=== PATIENT | male | born 1985 | race Caucasian/White ===

== ENCOUNTER 2018-08-07 15:28 | Emergency (ER) | payer MEDICAID, SELFPAY ==
[2018-08-07 15:32] VITALS: BP 178/95; PULSE 79; RESP 18; TEMP 36; O2SAT 98
--- NOTE | 2018-08-07 15:37 | DI.COMBO_ITS ---
SYMPTOM/DIAGNOSIS: LT GROIN PAIN, LT TESTICLE PAIN ABDOMEN AND PELVIC CT: CT examination of the abdomen and pelvis was performed without contrast administration. Images obtained through the lung bases are unremarkable. 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 The visualized portions of the liver and spleen are unremarkable as is the pancreas. No biliary dilatation is seen. Gallbladder is CT normal. Abdominal aorta is of normal diameter. No significant abdominal wall hernia is seen. No abdominal or pelvic adenopathy is seen. Appendix is normal. No evidence of diverticulitis or bowel obstruction. Adrenals appear normal bilaterally. There are tiny bilateral non obstructing renal calculi. There is a rim calcified, 36 mm. in diameter, low attenuation right renal lesion consistent with a parapelvic cyst. On the left, there is a minimally obstructing versus non obstructing proximal ureteral calculus measuring 1-2 mm. in diameter. CONCLUSION: 1. Bilateral non obstructing renal calculi. 2. Presumed right parapelvic cyst. 3. Minimally obstructing or non obstructing proximal left ureteral stone, 1-2 mm. in diameter. SCROTAL ULTRASOUND: The testicles were interrogated with a high resolution 7 megahertz small parts transducer which is doppler and color flow capable. There is no mass or abnormal fluid collection. The testicles are of normal size and acoustic consistency.The epididymis and region of the mediastinum testis is normal bilaterally. SUMMARY: Normal testicular ultrasound.
[2018-08-07] MEDS: MORPHine 10 MG/ML VIAL 4 MG IVP (15:43)
[2018-08-07] MEDS: Ondansetron 4 MG/2 ML VIAL IVP (15:43)
--- NOTE | 2018-08-07 15:43 | ED.GENADUL_ITS ---
Discharge Plan Disposition Patient Disposition: HOME Condition: Stable Discharge Details Chief Complaint: Abd Prob Clinical Impression: Kidney stone Primary Care Provider: Hari Cassidy ED Provider: Jalen Gooden Home Meds and New Rx's Prescriptions: New ondansetron 4 mg tablet,disintegrating 4 mg PO TID PRN (Reason: nausea and vomiting) 5 Days Qty: 30 RF: 0 oxycodone 5 mg tablet 5 mg PO Q6H PRN (Reason: pain) Qty: 12 RF: 0 Continued ibuprofen 800 MG tablet 800 mg PO TID PRN Qty: 30 RF: 0 Discharge Instructions Instructions: Kidney Stones (ED) Additional Instructions: you can take 1000mg tylenol every 6 hours for pain and also 800mg ibuprofen every 8 hours for pain. If this doesn't control your pain take 1 oxycodone, do not drink alcohol or drive if you take oxycodone you should be contacted with an appointment with urology If you have severe uncontrolled pain, persistent vomit or fevers return to the emergency department Medical Decision Making 33 yo male comes in with acute onset left testicle pain starting about an hour or so ago while sitting in his truck. Denies any recent trauma, no fevers and no hx of std, denies dysuria or d/c. Never has had pain like this. He has a diffusely tender left testicle with no swelling with intact cremasteric reflex. Given potential for torsion will refer for u/s. Has no redness, erythema or crepitus so doubt cellulitis or veto's gangrene. u/s negative for any pathology per tech, good flow. He still has pain but now localizes the pain to the left groin, will evaluate for possible kidney stone causing his pain pt's pain significantly improved with toradol, is more comfortable, no longer has tenderness in testicle and only has left groin area pain. His labs are unremarkable, awaiting urine studies. CT confirms nonobstructing kidney stones which based on his presentation fits as a cause of his pain. Will have him f/u with urology as outpatient and return precautions given Differential Diagnosis torsion, epididymitis Imaging Data Radiologic Study: Attestation: I personally reviewed and interpreted this imaging study as follows: Imaging: CT Scan Radiologist's impression: IMPRESSION: 1. Punctate bilateral nonobstructive calyceal calculi. No hydronephrosis. 2. Approximately 3.6 cm parapelvic cyst in the lower right kidney with thin peripheral calcifications (Bosniak 2). No further followup necessary Lab Data Lab results reviewed: Yes I reviewed the patient's lab results. HPI General Mode of arrival: ambulatory . Date/Time Provider Initiated Documentation: 08/07/18 15:31 . Limitations to Documentation: no limitations . Information obtained by: patient . History of Present Illness 33 year old M presents to the emergency department with the chief complaint of left testicle pain, described as severe, with intensity rated at 8. Quality is described as sharp, and is localized to the genitals. Patient reports no radiation. Patient started experiencing this hour(s) (1) and it has been constant. No relieving factors improve symptom(s), No exacerbating factors reported . Patient notes no other symptoms.. Patient did receive the following treatments prior to arrival, none Related Data Home Medications Medication Instructions Recorded Confirmed ibuprofen 800 mg PO TID PRN #30 tablet 11/09/13 08/07/18 ondansetron 4 mg PO TID PRN 5 Days #30 tab 08/07/18 oxycodone 5 mg PO Q6H PRN #12 tab 08/07/18 Previous Rx's Medication Instructions Recorded ibuprofen 800 mg PO TID PRN #30 tablet 11/09/13 ondansetron 4 mg PO TID PRN 5 Days #30 tab 08/07/18 oxycodone 5 mg PO Q6H PRN #12 tab 08/07/18 Allergies Allergy/AdvReac Type Severity Reaction Status Date / Time Penicillins Allergy Intermediate Skin Rash Unverified 08/07/18 15:36 pepperoni Allergy Intermediate facial Uncoded 08/07/18 15:36 swelling General Stated Complaint: Abd Prob CAROL: 3 Review of Systems Review of Systems All systems reviewed & are unremarkable except as noted in HPI and below Constitutional Denies chills and Denies fever(s) ENT Denies change in voice Cardiovascular Denies chest pain and Denies dyspnea Respiratory Denies cough and Denies dyspnea Gastrointestinal Denies abdominal pain Genitourinary Denies dysuria Integumentary/Breasts Denies rash Endocrine Denies heat intolerance PFSH Social History Smoking and Tabacco status: Current every day Exam Const General: cooperative Orientation: alert HENMT Head: normal to inspection Ears: external ears normal General nose exam: external nose normal Mouth: moist mucous membranes Eyes General: appearance normal, both eyes and all related structures Neck Neck: normal visual inspection Resp Effort & Inspection: normal respiratory effort and able to speak in complete sentences Cardio Rate: regular rate Penis: normal penis Testes: testicular tenderness on the left Skin General skin exam: no rashes or lesions noted Neuro General: alert and oriented x3 Extrem General: normal to inspection Psych Mental Status: mental status grossly normal Course Vital Signs Temperature 36.0 C L 08/07/18 15:32 Pulse 79 08/07/18 15:32 Respiratory Rate 18 08/07/18 15:32 Blood Pressure 178/95 H 08/07/18 15:32 Pulse Oximetry 98 08/07/18 15:32 Temperature 36.0 C L 08/07/18 15:32 Temperature Source Temporal Artery Scan 08/07/18 15:32 Pulse 79 08/07/18 15:32 Respiratory Rate 18 08/07/18 15:32 Blood Pressure 178/95 H 08/07/18 15:32 Blood Pressure Position Sitting 08/07/18 15:32 Pulse Oximetry 98 08/07/18 15:32 Oxygen Delivery Method Room Air 08/07/18 15:32 Oxygen Flow Rate 0 08/07/18 15:32 Pain Level 10 08/07/18 15:32
[2018-08-07] MEDS: Ketorolac 30 MG/ML VIAL IVP (16:17)
--- NOTE | 2018-08-07 16:19 | NUR.NOTE ---
patient medicated per MD order Nursing Note:
[2018-08-07 16:28] LABS: Abs Immature Grans 0.04 k/cumm (0.0-0.09); Absolute Basophil Count 0.06 k/cumm (0.0-0.2); Absolute Eosinophil Count 0.34 k/cumm (0.0-0.7); Absolute Lymphocyte Count 3.65 k/cumm (1.2-3.4); Absolute Monocyte Count 0.69 k/cumm (0.11-0.7); Absolute Neutrophil Count 7.35 k/cumm (1.2-6.7); Basophils % 0.5; Eosinophils % 2.8; HCT 48.2 % (40.0-50.0); HGB 16.4 g/dL (13.5-17.5); Immature Grans % 0.3; Lymphocytes % 30.1; Mean Corpuscular Hemoglobin 30.3 pg (27.0-33.0); Mean Corpuscular Volume 88.9 fL (80-95); Mean Platelet Volume 10.2 fL (8.0-11.0); Monocytes % 5.7; Neutrophils % 60.6; Platelet Count 315 x1000/uL (130-400); RBC 5.42 m/cumm (4.50-6.00); RBC Distribution Width 13.2 % (11.8-14.1); White Blood Cell Count 12.13 k/cumm (4.4-10.8)
--- NOTE | 2018-08-07 16:28 | DI.VRAD_ITS ---
EXAM: US Scrotum EXAM DATE/TIME: 08/07/2018 4:15 PM CLINICAL HISTORY: 33 years old, male; Pain; Other: Left testicular pain TECHNIQUE: Real-time ultrasound of the scrotum and contents with color Doppler and image documentation. COMPARISON: No relevant prior studies available. FINDINGS: Right Testicle: Right testis measures 4.5 x 2.4 x 3 cm. Normal vascular flow. Normal echogenicity. Left Testicle: Left testis measures 4.3 x 2.5 x 2.7 cm. Normal vascular flow. Normal echogenicity. Epididymides: Normal. Scrotum: Normal. IMPRESSION: No acute findings. Dictated and Authenticated by: Luis De La Cruz MD. Ordering:JAIRO Rao MD
[2018-08-07 16:41] LABS: ALT 66 U/L (12-78); AST 22 U/L (15-37); Alkaline Phosphatase 123 U/L (46-116); Anion Gap 9.9 mmol/L (3-11); BUN 16 mg/dL (7-18); Bilirubin, Direct 0.08 mg/dL (0.00-0.20); Bilirubin, Total 0.2 mg/dL (0.2-1.0); CO2 27.1 mmol/L (21.0-32.0); CREATININE 1.04 mg/dL (0.70-1.30); Calcium 8.8 mg/dL (8.5-10.1); Chloride 102 mmol/L (98-107); Glucose 122 mg/dL (70-100); Lipase 70 U/L (73-393); Magnesium 1.9 mg/dL (1.8-2.4); Potassium 3.6 mmol/L (3.5-5.1); Sodium 139 mmol/L (136-145); Total Protein 7.8 g/dL (6.4-8.2)
--- NOTE | 2018-08-07 16:55 | DI.VRAD_ITS ---
EXAM: CT Abdomen and Pelvis Without Contrast EXAM DATE/TIME: 08/07/2018 4:14 PM CLINICAL HISTORY: 33 years old, male; Signs and symptoms; Other: Left groin pain TECHNIQUE: Axial computed tomography images of the abdomen and pelvis without contrast. All CT scans at this facility use at least one of these dose optimization techniques: automated exposure control; mA and/or kV adjustment per patient size (includes targeted exams where dose is matched to clinical indication); or iterative reconstruction. Coronal and sagittal reformatted images were created and reviewed. COMPARISON: No relevant prior studies available. FINDINGS: Lower thorax: Lung bases are clear. ABDOMEN: Liver: Unremarkable. Gallbladder and bile ducts: Unremarkable. No ductal dilation. Pancreas: Unremarkable. No ductal dilation. Spleen: Unremarkable. Adrenals: Unremarkable. Kidneys and ureters: 3.6 cm parapelvic cyst in the lower right kidney with thin peripheral calcifications. Punctate bilateral nonobstructive calyceal calculi. No hydronephrosis. Stomach and bowel: Stomach is unremarkable. No small bowel obstruction. Large bowel is unremarkable. Appendix: No evidence of appendicitis. PELVIS: Bladder: Unremarkable. Reproductive: Unremarkable as visualized. ABDOMEN and PELVIS: Intraperitoneal space: No pneumoperitoneum. No significant fluid collection. 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 No acute fracture or dislocation. Soft tissues: Unremarkable. Vasculature: Unremarkable. Lymph nodes: No enlarged lymph nodes. IMPRESSION: 1. Punctate bilateral nonobstructive calyceal calculi. No hydronephrosis. 2. Approximately 3.6 cm parapelvic cyst in the lower right kidney with thin peripheral calcifications (Bosniak 2). No further followup necessary. Dictated and Authenticated by: Luis De La Cruz MD. Ordering:JAIRO Rao MD
[2018-08-07 17:02] VITALS: BP 147/71; PULSE 80; RESP 18; O2SAT 99
[2018-08-07] MEDS: Normal Saline 1,000 ML 1000 ML IV (17:15)
[2018-08-07 17:42] LABS: Bilirubin Negative (Negative); Blood Large (Negative); Clarity Cloudy; Glucose Negative (Negative); Ketones Trace mg/dL (Negative); Leukocyte Esterase Negative (Negative); Nitrite Negative (Negative); Specific Gravity >= 1.030 (1.005-1.025); Urobilinogen 0.2 EU/dL (Up TO 0.2)
[2018-08-07 17:54] LABS: C & S Indicated? Yes; RBC >50 (0-2)
--- NOTE | 2018-08-11 08:33 | PDOC.ERCMPRO ---
Care Management Progress Note 08/11-Dr. Gooden requested assistance with a urology f/u for kidney stone. Referral [facility]ed [facility] this [facility].
== END 2018-08-07 18:07 | disposition home or self-care (01) ==
PROVIDERS: Emergency Provider Emergency Medicine; PCP Emergency Medicine
DX: N20.0 Calculus of kidney (principal)
CPT/HCPCS: 36415; 80053; 80076; 83690; 87491; 87591; 96361; 96374; 96375; 96376; 99284; 74176; 76870; 81003; 81015; 83735; 85025; 87086; J1885; J2270; J2405

== ENCOUNTER 2018-12-06 14:57 | Emergency (ER) | payer MEDICAID, SELFPAY ==
[2018-12-06 15:02] VITALS: BP 164/86; PULSE 72; RESP 16; TEMP 36.5; O2SAT 99
[2018-12-06] MEDS: Ondansetron 4 MG/2 ML VIAL IVP (15:20)
[2018-12-06] MEDS: Ketorolac 30 MG/ML VIAL IVP (15:20)
--- NOTE | 2018-12-06 15:22 | DI.CT_ITS ---
SYMPTOMS/DIAGNOSIS: RIGHT FLANK PAIN NONCONTRAST CT OF THE ABDOMEN AND PELVIS: There is a 3 mm stone in the mid right ureter causing moderate right hydronephrosis. Other tiny stones are seen in the right kidney. The left kidney is unremarkable. The bladder is nearly empty and also appears normal. The visualized portions of the lung bases are clear. The heart size is normal. There is a question of mild fatty infiltration. The gallbladder, spleen, pancreas and adrenals appear normal. The appendix is normal. There is no bowel dilatation or inflammatory change. IMPRESSION: Moderate right hydronephrosis secondary to a 3 mm stone in the mid ureter. Additional nonobstructing renal calculi are seen on the right.
[2018-12-06] MEDS: Normal Saline 1,000 ML 1000 ML IV (15:26)
--- NOTE | 2018-12-06 15:28 | ED.GENADUL_ITS ---
Discharge Plan Disposition Patient Disposition: HOME Discharge Details Chief Complaint: Urinary Primary Care Provider: Hari Cassidy ED Provider: Pedrito Abad Home Meds and New Rx's Prescriptions: New tamsulosin [Flomax] 0.4 mg capsule 0.4 mg PO DAILY Qty: 10 RF: 0 No Action acetaminophen [Tylenol] 325 mg tablet 325 mg PO Q6H PRNRF: 0 ibuprofen 800 MG tablet 800 mg PO TID PRN Qty: 30 RF: 0 Discharge Data Discharge Date/Time-TO BE ENTERED AT DEPARTURE: 12/06/18 17:51 Medical Decision Making <Nelson Garcia MEDICAL INSTRUMENT CABLE FABRICATOR - Last Filed: 12/11/18 11:37> Patient presenting to the emergency department for chief complaint of right testicular pain. Patient states that this started approximately 2 hours prior to arrival and is similar nature to when he had a previous kidney stone. Patient denies any activity during onset of discomfort and states he was just riding in a vehicle. Physical exam shows a significantly high riding right testicle with mild tenderness, no abdominal pain, no CVA tenderness. Patient does state some associated nausea but denies any other urinary complaints. Plan to do labs, ultrasound imaging given high riding testicle that has mild tenderness to palpation, review of previous visit which showed similar presentation of kidney stone but also plan to do CT. fluids, ketorolac, and Zofran were ordered initially Pending CT imaging patient states only mild relief with ketorolac so patient given hydromorphone. CT imaging was reviewed and shows a 3 mm stone mid right ureter. Patient pending ultrasound imaging <Pedrito Abad DO - Last Filed: 12/06/18 17:45> Patient was signed out to me by my colleague Dyllan Garcia. Patient had a notably thorough work-up with an initial complaint of right-sided testicular pain. CT scan reveals evidence of a right mid ureteral stone, mild hydro-. Renal function normal. No evidence of urinary tract infection on urinalysis. Mild blood. Scrotal ultrasound was performed and demonstrates no evidence of torsion or epididymitis or other acute abnormality per radiology. No other significant abnormality. On reassessment the patient's pain is near completely resolved. He is feeling well. They feel he can be safely discharged home with his diagnosis of kidney stone. We will recommend Flomax, maximum NSAID therapy. He does not want any narcotics at this time. He already has a relationship with Dr. Puga would recommend close follow-up with him and his PCP. I have extensively reviewed the treatment plan and discharge instructions with the patient and their family. I have addressed all patient concerns at this time. The patient and family was made aware of what symptoms to monitor for that would warrant a return to the emergency department. Discussed the plan with the patient and family, they demonstrate verbal understanding and agreement with our assessment and plan at this time. COMPARISON: US scrotum 08/07/2018 3:58 PM FINDINGS: Testes normal bilaterally. Normal bilateral blood flow. No abnormal fluid collections. IMPRESSION: Unremarkable exam. Thank you for allowing us to participate in the care of your patient. Dictated and Authenticated by: Alonzo Schaeffer MD 12/06/2018 5:13 PM Eastern Time ([place] & [place]) HPI <Nelson Garcia NP - Last Filed: 12/11/18 11:37> General Mode of arrival: ambulatory . Date/Time Provider Initiated Documentation: 12/06/18 15:02 . Limitations to Documentation: no limitations . Information obtained by: patient . History of Present Illness 33 year old M presents to the emergency department with the chief complaint of Right testicle pain, described as moderate and similar to prior episodes, with intensity rated at 10. Quality is described as aching and sharp, and is localized to the genitals and right. Patient started experiencing this hour(s) (2) and it has been constant. No relieving factors improve symptom(s), No exacerbating factors reported . Patient did receive the following treatments prior to arrival, none Related Data Home Medications Medication Instructions Recorded Confirmed ibuprofen 800 mg PO TID PRN #30 tab 11/09/13 08/21/18 acetaminophen 325 mg tablet 325 mg PO Q6H PRN 08/21/18 08/21/18 tamsulosin [Flomax] 0.4 mg PO DAILY #10 cap 12/06/18 Previous Rx's Medication Instructions Recorded ibuprofen 800 mg PO TID PRN #30 tab 11/09/13 tamsulosin [Flomax] 0.4 mg PO DAILY #10 cap 12/06/18 Allergies Allergy/AdvReac Type Severity Reaction Status Date / Time Penicillins Allergy Intermediate Skin Rash Unverified 12/06/18 15:01 pepperoni Allergy Intermediate facial Uncoded 12/06/18 15:01 swelling General Stated Complaint: Urinary CAROL: 3 Review of Systems <Nelson Garcia NP - Last Filed: 12/11/18 11:37> Constitutional Reports system reviewed and no additional complaints, except as docu, Denies chills and Denies fever(s) Gastrointestinal Reports system reviewed and no additional complaints, except as docu, Denies abdominal pain, Denies change in bowel habits and Reports vomiting (x1 due to pain) Genitourinary Reports system reviewed and no additional complaints, except as docu, Denies hematuria, Denies difficulty urinating, Denies genital lesions, Reports genital pain (R testicle), Denies dysuria, Reports flank pain (R side), Denies penile discharge, Denies scrotal swelling, Reports testicular pain and Denies urinary incontinence PFSH <Nelson Garcia NP - Last Filed: 12/11/18 11:37> Social History Smoking/Tobacco Use Status: Current every day Drug use: Never Do you feel safe at home: Yes Do you feel safe in your relationship?: Yes Exam <BEN Contreras Last Filed: 12/11/18 11:37> Const General: cooperative and in distress Nutritional Appearance: obese Resp Effort & Inspection: normal respiratory effort and able to speak in complete sentences Auscultation: clear to auscultation bilaterally Cardio Rate: regular rate Rhythm: regular rhythm Heart Sounds: S1 normal and S2 normal GI Inspection: normal to inspection, no abdominal wall ecchymosis, obesity, no visible herniation and no visible pulsation Palpation: soft Auscultation: normal bowel sounds Penis: normal penis Meatus: meatus normal Scrotum: no ecchymosis, not erythematous, no masses, scrotal swelling (difficult to assess due to elevated R testicle) and no ulcerations Testes: high-riding testicle on the right Back/Spine/Pelvis Back: no CVA tenderness Skin General skin exam: no rashes or lesions noted Course <BEN Contreras Last Filed: 12/11/18 11:37> Vital Signs Temperature 36.5 C 12/06/18 15:02 Pulse 72 12/06/18 15:02 Respiratory Rate 16 12/06/18 15:02 Blood Pressure 164/86 H 12/06/18 15:02 Pulse Oximetry 99 12/06/18 15:02 Temperature 36.5 C 12/06/18 15:02 Temperature Source Temporal Artery Scan 12/06/18 15:02 Pulse 72 12/06/18 15:02 Respiratory Rate 16 12/06/18 15:02 Respiratory Effort 12/06/18 15:02 Blood Pressure 164/86 H 12/06/18 15:02 Blood Pressure Position Supine 12/06/18 15:02 Pulse Oximetry 99 12/06/18 15:02 Oxygen Delivery Method Room Air 12/06/18 15:02 Oxygen Flow Rate 0 12/06/18 15:02 Pain Level 10 12/06/18 15:02 Sign Out <Nelson Garcia NP - Last Filed: 12/11/18 11:37> Sign Out Data: Sign Out Comment: Pending ultrasound imaging patient signed out to Dr. Abad for review of ultrasound, any further treatment or disposition. Last updated by Nelson Garcia NP at 12/06/18 16:23
--- NOTE | 2018-12-06 15:33 | DI.US_ITS ---
SYMPTOMS/DIAGNOSIS: RIGHT TESTICULAR PAIN SCROTAL ULTRASOUND: The testicles are normal in size and echogenicity and show normal blood flow. No mass, cyst, hydrocele or varicocele is seen. Both epididymides are normal in size and show normal blood flow. IMPRESSION: Negative testicular ultrasound.
[2018-12-06 15:34] LABS: Abs Immature Grans 0.04 k/cumm (0.0-0.09); Absolute Basophil Count 0.04 k/cumm (0.0-0.2); Absolute Eosinophil Count 0.19 k/cumm (0.0-0.7); Absolute Lymphocyte Count 2.41 k/cumm (1.2-3.4); Absolute Monocyte Count 0.71 k/cumm (0.11-0.7); Basophils % 0.3; Eosinophils % 1.5; HCT 50.2 % (40.0-50.0); HGB 17.1 g/dL (13.5-17.5); Immature Grans % 0.3; Lymphocytes % 19.4; Mean Corp. HGB Concentration 34.1 g/dL (32.0-36.0); Mean Corpuscular Hemoglobin 30.2 pg (27.0-33.0); Mean Corpuscular Volume 88.7 fL (80-95); Mean Platelet Volume 10.2 fL (8.0-11.0); Monocytes % 5.7; Neutrophils % 72.8; Platelet Count 280 x1000/uL (130-400); RBC 5.66 m/cumm (4.50-6.00); RBC Distribution Width 13.3 % (11.8-14.1); White Blood Cell Count 12.42 k/cumm (4.4-10.8)
[2018-12-06 15:51] LABS: ALT 73 U/L (12-78); AST 21 U/L (15-37); Albumin 4.1 g/dL (3.4-5.0); Alkaline Phosphatase 118 U/L (46-116); Anion Gap 12.1 mmol/L (3-11); BUN 17 mg/dL (7-18); Bilirubin, Total 0.4 mg/dL (0.2-1.0); CO2 26.9 mmol/L (21.0-32.0); CREATININE 1.17 mg/dL (0.70-1.30); Chloride 102 mmol/L (98-107); Glucose 108 mg/dL (70-100); Potassium 3.9 mmol/L (3.5-5.1); Sodium 141 mmol/L (136-145); Total Protein 7.8 g/dL (6.4-8.2)
[2018-12-06 15:53] LABS: Absolute Neutrophil Count 9.04 k/cumm (1.2-6.7)
--- NOTE | 2018-12-06 15:57 | DI.VRAD_ITS ---
EXAM: CT Abdomen and Pelvis Without Contrast EXAM DATE/TIME: 12/06/2018 3:26 PM CLINICAL HISTORY: 33 years old, male; Other: Right flank pain TECHNIQUE: Imaging protocol: Axial computed tomography images of the abdomen and pelvis without contrast. Coronal and sagittal reformatted images were created and reviewed. COMPARISON: CT renal colic wo 08/07/2018 4:34 PM FINDINGS: Approximate 3 mm stone in the mid right ureter resulting in obstruction of the right kidney. Additional nonobstructing right nephrolithiasis. Appendix is normal. No focal inflammatory process. No evidence of bowel obstruction. No significant free fluid. IMPRESSION: 1. Mid right ureteral stone resulting in obstruction of the right kidney. 2. Additional nonobstructing right nephrolithiasis. Dictated and Authenticated by: Alonzo Schaeffer MD. Ordering:DEAN Damon MD
[2018-12-06] MEDS: HYDROmorphone 2 MG/ML VIAL 0.5 MG IVP (16:06)
[2018-12-06] MEDS: Normal Saline Flush 10 ML SYR IVP (16:07)
[2018-12-06 16:27] VITALS: BP 125/77; PULSE 78; RESP 18; TEMP 36.9; O2SAT 99
[2018-12-06 16:29] LABS: Bilirubin Negative (Negative); Blood Large (Negative); Clarity Cloudy; Glucose Negative (Negative); Ketones Trace mg/dL (Negative); Leukocyte Esterase Negative (Negative); Nitrite Negative (Negative); Specific Gravity 1.025 (1.005-1.025); Urobilinogen 0.2 EU/dL (Up TO 0.2)
[2018-12-06 16:43] LABS: Bacteria Negative HPF (Negative); C & S Indicated? No; Casts Negative LPF (Negative); Crystals Rare Calcium Oxalate HPF (Negative); Epithelial Cells Negative HPF (Negative); Mucus Negative (Negative); Other Cells Negative (Negative); RBC >50 (0-2)
--- NOTE | 2018-12-06 17:14 | DI.VRAD_ITS ---
EXAM: US Scrotum EXAM DATE/TIME: 12/06/2018 5:00 PM CLINICAL HISTORY: 33 years old, male; Other: Right testicular and right flank pain x 3 hours TECHNIQUE: Imaging protocol: Real-time ultrasound of the scrotum and contents with color Doppler and image documentation. COMPARISON: US scrotum 08/07/2018 3:58 PM FINDINGS: Testes normal bilaterally. Normal bilateral blood flow. No abnormal fluid collections. IMPRESSION: Unremarkable exam. Dictated and Authenticated by: Alonzo Scheaffer MD. Ordering:DEAN Damon MD
== END 2018-12-06 17:51 | disposition home or self-care (01) ==
PROVIDERS: Nurse Practitioner Family; Emergency Provider Student in an Organized Health Care Education/Training Program; PCP Emergency Medicine
DX: N20.1 Calculus of ureter (principal)
CPT/HCPCS: 36415; 80053; 96361; 96374; 96375; 99284; 74176; 76870; 81003; 81015; 85025; J1885; J2405